=== PATIENT | female | born 1990 | race Caucasian/White ===

== ENCOUNTER 2017-07-12 09:04 | Day surgery (SDC) | payer BC ==
[2017-07-11 11:30] VITALS: BMI 30.7
[~2017-07-12 09:04] MED LIST: Dexamethasone 20 MG/5 ML VIAL ONE; Lidocaine 1% PF 5 ML VIAL ONE; Ondansetron PF 4 MG/2 ML Vial ONE; PROPOFOL 200 MG/20 ML VIAL ONE; Succinylcholine Chloride 20 MG/ML 10 ml SYRINGE FS ONE; ePHEDrine/0.9% NaCl/PF SYRINGE 50 mg/10 ml ONE
[2017-07-12] MEDS ORDERED: Oxymetazoline HCl 0.05% ( 15 ML ) ONE ×2 (12:46→13:57)
[2017-07-12 13:24] LABS: BHCG - Serum Negative (NEGATIVE); Pregs Control Background? CLEAR/WHITE (CLR/WHITE); Pregs Control Bar Appear? YES (CONTROL BAR)
[2017-07-12] MEDS ORDERED: Midazolam HCl 2 mg/2 ml Vial ONE ×2 (13:29→13:55)
[2017-07-12] MEDS ORDERED: Fentanyl 250 MCG/5 ML VIAL ONE (13:55)
[2017-07-12] MEDS ORDERED: Lidocaine 1% w/Epinephrine 1:200K 30 ML VIAL ONE (13:56)
[2017-07-12] MEDS ORDERED: Bacitracin Zinc Ointment 30 gm TUBE ONE (13:57)
[2017-07-12] MEDS ORDERED: Lidocaine 2% Jelly 5 ML TUBE ONE (13:59)
[2017-07-12] MEDS ORDERED: Promethazine HCl 25 MG/ML VIAL ONE (15:17)
[2017-07-12] MEDS ORDERED: Fentanyl 100 MCG/2 ML VIAL ONE ×2 (15:20→16:31)
[2017-07-12] MEDS ORDERED: Ondansetron PF 4 MG/2 ML Vial ONE (15:44)
[2017-07-12] MEDS ORDERED: HYDROcodone/Acetaminophen 5/325 mg Tablet ONE (17:08)
--- NOTE | 2017-07-12 17:58 | OP ---
PREOPERATIVE DIAGNOSES: Chronic sinusitis, recurrent sinusitis, deviated septum, hypertrophic inferi or turbinates. POSTOPERATIVE DIAGNOSES: Chronic sinusitis, recurrent sinusitis, deviated septum, hypertrophic infer ior turbinates. PROCEDURES: 1. Bilateral nasal endoscopy with maxillary antrostomy with removal of tissue. 2. Bilateral nasal endoscopy with frontal sinusotomy. 3. Bilateral nasal endoscopy with total ethmoidectomy. 4. Bilateral nasal endoscopy with sphenoidotomy. 5. Bilateral nasal endoscopy with submucosal resection of inferior turbinates. 6. Septoplasty. DESCRIPTION OF PROCEDURE: After consent was obtained, the patient was identified, brought to the ope rating room, and placed on the operating room table in the supine position. Consent was obtained, no tifying the patient of the possibility of additional infections, bleeding, brain injury, and eye/orbi corazon injury. The patient was placed on the operating room table, and general endotracheal anesthesia and intravenous access was obtained. The patient was then positioned, prepped and draped for endosc opic sinus surgery. Nasal preparation included trimming nasal vestibular hairs and spraying in topic al Afrin. We then placed Afrin topical solution on nasal pledgets and strategically located them int ranasally. The perinasal mucosa was injected with 1% lidocaine with 1:100,000 epinephrine in the sub mucoperichondrial plane of the septum, lateral nasal wall, and anterior to the uncinate. The patient was then prepped and draped in a sterile fashion and positioned for endoscopic sinus surgery. With the 0-degree endoscope, the patient underwent systematic nasal endoscopy. There were no suspici ous internasal masses or lesions identified. We then focused our attention to the osteomeatal comple x region under the middle turbinate. The uncinate was then identified and the extent of the uncinate was appreciated by out-fracturing the uncinate with the ball-tip probe. We then used the sickle blade to disarticulate the uncinate from the lateral nasal wall. This was then removed with straight biting and upbiting punches with the remaining shrouds of mucosa and bony septum removed with the micro-debr ider. The natural os of the maxillary sinus was then identified and enlarged with the maxillary punc hes and back biting forceps. The anterior face of the ethmoid bulla was entered and with the micro-debrider, dissection continued posteriorly to the ground lamella. The limits of dissection inc luded the insertion of the middle turbinate, medial orbital wall, and base of skull. We similarly id entified the frontal recess and removed shrouds of bone and debris in that region to obtain patency i nto the agger nasi region and frontal recess. We then entered the ground lamella and its anteroinfer ior aspect and proceeded posteriorly, opening the posterior ethmoid air-cell system. Again, the limi ts of dissection included the base of skull and medial orbital wall. The anterior face of the sphenoid was identified and entered in its extreme anteroinferior aspect. A sphenoid punch was then used to enlarge the sphenoidotomy and no injury to the optic nerve or newsroom intern al carotid artery occurred. The inferior turbinates were visualized under endoscopic visualization and outfractured with the elev ator. The inferolateral edge of the inferior turbinate was then cauterized along its length with the suction cautery without difficulty. The inferior turbinates were visualized with a 0-degree endoscope and outfractured with a Naga eleva tor. The inferior medial aspect was cauterized with the electrocautery. Hemostasis was obtained . After adequate airway was established, we turned our attention to the contralateral side and used a s imilar procedure. Again, a Naga elevator was used to outfracture inferior turbinates under endoscop ic visualization. With a suction cautery, the free inferior medial aspect was cauterized under direc t visualization along the length of the inferior turbinate. After local anesthesia was infiltrated into the submucoperichondrial plane, a standard Stephon incisi on was made with a #15 blade down to the level of the septal cartilage. The caudal elevator was used to elevate the mucoperichondrium from the underlying cartilage. We then proceeded beyond the bony c artilaginous junction and elevated the bony periosteum as well. Great attention was paid to the spur to prevent rent formation in the septal flap. A transcartilaginous incision was then made, while pre serving an adequate dorsal and caudal cartilaginous strut for tip support. The deformed cartilage wa s removed and disarticulated from the bony cartilaginous junction and maxillary crest. This was plac ed in saline and would later be crushed and returned to the mucoperichondrial envelope. We then elev ated the contralateral periosteum from the bony cartilaginous region and removed the deformed portion s of the bone and bony spurs. The cartilage was then crushed and placed back into the mucoperichondr ial envelope and the mucosa was re-approximated with a quilting stitch composed of rapidly absorbent gut suture. The Stephon incision was also closed with interrupted gut suture. At the completion of the case, Johnson splints were placed and suture secured to the caudal septum. At this point, we then turned our attention to the contralateral side and proceeded with endoscopic s inus surgery. At the completion of the case, Rice keel splints were placed in the ethmoid cavities after the ethmoi dectomy. There were no complications. The patient tolerated the procedure well and was discharged t o the recovery room in stable condition prior to return to the preoperative Day Stay with [facility]. Prescriptions for pain medication and antibiotics were provided. The patient received intramuscular Depo-Medrol during the case.
--- NOTE | 2017-07-14 08:02 | EKG ---
Test Reason : PREOP Blood Pressure : / mmHG Vent. Rate : 070 BPM Atrial Rate : 070 BPM P-R Int : 144 ms QRS Dur : 096 ms QT Int : 406 ms P-R-T Axes : -29 064 054 degrees QTc Int : 438 ms Normal sinus rhythm Normal ECG No previous ECGs available Confirmed by DR. Flor CAMPUZANO ([id number]) on 07/14/2017 8:02:11 AM Referred By: GONZALEZ Confirmed By:DR. Flor CAMPUZANO
== END 2017-07-12 17:52 | disposition home or self-care (01) ==
LOC: SDC 09:04
PROVIDERS: ATTEND Specialist
PROC: 09TV8ZZ Resection of Left Ethmoid Sinus, Via Natural or Artificial Opening Endoscopic (ICD-10-PCS; principal; 2017-07-12)
PROC: 099T8ZZ Drainage of Left Frontal Sinus, Via Natural or Artificial Opening Endoscopic (ICD-10-PCS; principal; 2017-07-12)
PROC: 09BR8ZZ Excision of Left Maxillary Sinus, Via Natural or Artificial Opening Endoscopic (ICD-10-PCS; principal; 2017-07-12)
PROC: 09TU8ZZ Resection of Right Ethmoid Sinus, Via Natural or Artificial Opening Endoscopic (ICD-10-PCS; principal; 2017-07-12)
PROC: 09RM07Z Replacement of Nasal Septum with Autologous Tissue Substitute, Open Approach (ICD-10-PCS; principal; 2017-07-12)
PROC: 099X8ZZ Drainage of Left Sphenoid Sinus, Via Natural or Artificial Opening Endoscopic (ICD-10-PCS; principal; 2017-07-12)
PROC: 09TL8ZZ Resection of Nasal Turbinate, Via Natural or Artificial Opening Endoscopic (ICD-10-PCS; principal; 2017-07-12)
PROC: 099S8ZZ Drainage of Right Frontal Sinus, Via Natural or Artificial Opening Endoscopic (ICD-10-PCS; principal; 2017-07-12)
PROC: 099W8ZZ Drainage of Right Sphenoid Sinus, Via Natural or Artificial Opening Endoscopic (ICD-10-PCS; principal; 2017-07-12)
PROC: 09BQ8ZZ Excision of Right Maxillary Sinus, Via Natural or Artificial Opening Endoscopic (ICD-10-PCS; principal; 2017-07-12)
DX: J32.8 Other chronic sinusitis (principal); J34.2 Deviated nasal septum; J34.3 Hypertrophy of nasal turbinates; J45.909 Unspecified asthma, uncomplicated; F43.10 Post-traumatic stress disorder, unspecified; F32.9 Major depressive disorder, single episode, unspecified; Z79.51 Long term (current) use of inhaled steroids; Z79.899 Other long term (current) drug therapy; Z88.0 Allergy status to penicillin; Z88.8 Allergy status to other drugs, medicaments and biological substances; Z88.5 Allergy status to narcotic agent
CPT/HCPCS: 36415; 84703; 85014; 93005; 93010; 96374; J1100; J2001; J2250; J2405; J2550; J2704; J3010

== ENCOUNTER 2022-08-08 05:53 | Day surgery (SDC) | payer BC ==
[2022-08-04 10:55] VITALS: BMI 40.5
[2022-08-08] MEDS ORDERED: FENTANYL 50 MCG/ML 1 ML VIAL ONE ×2 (06:39)
[2022-08-08] MEDS ORDERED: Dexmedetomidine 200 MCG/2 ML VIAL ONE (06:40)
[2022-08-08] MEDS ORDERED: Famotidine/PF 20 mg/2ml Vial ONE (06:40)
[2022-08-08] MEDS ORDERED: EPINEPHrine 1 MG/ML AMP ONE (06:58)
[2022-08-08] MEDS ORDERED: Lidocaine 1% (PF) 30 ML VIAL ONE (06:58)
[2022-08-08] MEDS ORDERED: Clindamycin/D5W 600 mg/50 ml Premix Bag ONE (07:49)
[2022-08-08] MEDS ORDERED: Midazolam HCl 2 mg/2 ml Vial ONE (08:31)
[2022-08-08] MEDS ORDERED: GLYCOPYRROLATE/PF 0.2 MG/ML VIAL ONE (08:32)
[2022-08-08] MEDS ORDERED: PROPOFOL 200 MG/20 ML VIAL ONE (08:32)
[2022-08-08] MEDS ORDERED: Lidocaine 1% PF 5 ML VIAL ONE (08:32)
[2022-08-08] MEDS ORDERED: Ondansetron PF 4 MG/2 ML Vial ONE (08:32)
[2022-08-08] MEDS ORDERED: NEOSTIGMINE 3 MG/3 ML SYR 3 MG/3 ML SYRINGE ONE (08:32)
[2022-08-08] MEDS ORDERED: Rocuronium Bromide 10 MG/ML (10ML VIAL) ONE (08:32)
[2022-08-08] MEDS ORDERED: Dexamethasone 20 MG/5 ML VIAL ONE (08:32)
[2022-08-08] MEDS ORDERED: Bacitracin Zinc Ointment 30 gm TUBE ONE (09:30)
== END 2022-08-08 11:00 | disposition home or self-care (01) ==
LOC: SDC 05:53
PROVIDERS: ATTEND Student in an Organized Health Care Education/Training Program
PROC: 0JB40ZZ Excision of Right Neck Subcutaneous Tissue and Fascia, Open Approach (ICD-10-PCS; principal; 2022-08-08)
DX: L72.0 Epidermal cyst (principal); I10 Essential (primary) hypertension; Z79.899 Other long term (current) drug therapy; Z88.0 Allergy status to penicillin; Z88.5 Allergy status to narcotic agent; Z88.8 Allergy status to other drugs, medicaments and biological substances
CPT/HCPCS: 88304; J0171; J1100; J2001; J2250; J2405; J2704; J3010; J3490; S0028